=== PATIENT | male | born 1995 | race Caucasian/White ===

== ENCOUNTER 2021-04-18 13:57 | Emergency (ER) | payer OTHER ==
[~2021-04-18] VITALS: Ht 182.9 cm; Wt 81.6 kg
[2021-04-18 13:58] VITALS: BP 148/94
== END 2021-04-18 14:26 | disposition left against medical advice (07) ==
LOC: ER 13:57
DX: S61.512A Laceration without foreign body of left wrist, initial encounter (principal); Z53.21 Procedure and treatment not carried out due to patient leaving prior to being seen by health care provider; W26.8XXA Contact with other sharp object(s), not elsewhere classified, initial encounter; Y93.89 Activity, other specified; Y92.89 Other specified places as the place of occurrence of the external cause; Y99.8 Other external cause status